=== PATIENT | female | born 1935 | race Caucasian/White ===

== ENCOUNTER 2017-11-24 12:12 | Day surgery (SDC) | payer OTHER ==
[~2017-11-24] VITALS: Ht 167.6 cm; Wt 70.2 kg
[~2017-11-24 12:12] MED LIST: ACET325 PO; CALMAGZIN PO; CHOL10002 PO; IBUP600 PO; LAVAP17G PO; MULVITMIND PO; OMEPRAZOLE PO; PSYL5.85P PO; VIT1CAPS12 PO; ZESTORETIC 20-121 EA PO
== END 2017-11-24 14:46 | disposition home or self-care (01) ==
LOC: ORSCSDS 12:12
PROVIDERS: Internal Medicine Gastroenterology
PROC: 0DB68ZX Excision of Stomach, Via Natural or Artificial Opening Endoscopic, Diagnostic (ICD-10-PCS; principal; 2017-11-24 13:30)
PROC: 0DB98ZX Excision of Duodenum, Via Natural or Artificial Opening Endoscopic, Diagnostic (ICD-10-PCS; principal; 2017-11-24 13:30)
PROC: 0D758ZZ Dilation of Esophagus, Via Natural or Artificial Opening Endoscopic (ICD-10-PCS; principal; 2017-11-24 13:30)
PROC: 0DB58ZX Excision of Esophagus, Via Natural or Artificial Opening Endoscopic, Diagnostic (ICD-10-PCS; principal; 2017-11-24 13:30)
DX: R13.10 Dysphagia, unspecified (principal); K22.2 Esophageal obstruction; K22.8 Other specified diseases of esophagus; K44.9 Diaphragmatic hernia without obstruction or gangrene; K31.7 Polyp of stomach and duodenum; R10.11 Right upper quadrant pain; I10 Essential (primary) hypertension; Z79.899 Other long term (current) drug therapy; Z87.891 Personal history of nicotine dependence
CPT/HCPCS: 88305; 88342; J7120

== ENCOUNTER → 2017-11-25 | Outpatient (CLI) | payer OTHER | LOC: LAB EV 11:00 → LAB SHORT 11:00 | DX: L03.119 Cellulitis of unspecified part of limb (principal) | CPT/HCPCS: 87070; 87077; 87147; 87186; 87205 ==

== ENCOUNTER → 2018-03-21 | Outpatient (CLI) | payer OTHER | LOC: LAB 11:45 → LAB SHORT 11:45 | DX: L08.9 Local infection of the skin and subcutaneous tissue, unspecified (principal) | CPT/HCPCS: 87070; 87077; 87186; 87205 ==

== ENCOUNTER → 2018-06-14 | Outpatient (CLI) | payer OTHER ==
[2018-06-14 17:40] LABS: BASOPHILS ABSOLUTE AUTO 0.08 K/mm3 (0.00-0.23); BASOPHILS PERCENT AUTO 1 % (0-2); EOSINOPHILS ABSOLUTE AUTO 0.08 K/mm3 (0.00-0.68); EOSINOPHILS PERCENT AUTO 1 % (0-6); Hematocrit 43.9 % (33.0-51.0); Hemoglobin 14.8 g/dL (11.5-16.0); IMMATURE GRAN ABSOLUTE AUTO 0.03 K/mm3 (0.00-0.10); IMMATURE GRAN PERCENT AUTO 0 % (0-1); LYMPHOCYTES ABSOLUTE AUTO 2.37 K/mm3 (0.84-5.20); LYMPHOCYTES PERCENT AUTO 30 % (21-46); MONOCYTES ABSOLUTE AUTO 0.56 K/mm3 (0.16-1.47); MONOCYTES PERCENT AUTO 7 % (4-13); Mean Corpuscular HGB Conc 33.7 g/dL (31.5-36.5); Mean Corpuscular Volume 89 fL (80-100); Mean Platelet Volume 9.6 fL (9.1-12.4); NEUTROPHILS ABSOLUTE AUTO 4.84 K/mm3 (1.96-9.15); NEUTROPHILS PERCENT AUTO 61 % (41-73); Platelet Count 362 K/mm3 (150-400); RDW Standard Deviation 45.2 fL (35.1-46.3); Red Blood Cell Count 4.94 M/mm3 (3.80-5.20); White Blood Cell Count 7.96 K/mm3 (4.00-11.30)
[2018-06-14 17:52] LABS: Alanine Aminotransfer (ALT/SGP 23 U/L (12-78); Albumin, Blood 4.1 g/dL (3.4-5.0); Albumin/Globulin Ratio 1.1 (0.8-1.8); Alk Phos 77 U/L (40-126); Anion Gap 10 mmol/L (6-16); Aspartate Aminotrans (AST/SGOT 16 U/L (12-37); Bilirubin, Total 0.3 mg/dL (0.1-1.0); Blood Urea Nitrogen 20 mg/dL (8-24); CO2, Blood 28 mmol/L (21-32); Calcium, Blood 9.7 mg/dL (8.5-10.1); Chloride, Blood 105 mmol/L (98-108); Creatinine, Blood 1.05 mg/dL (0.40-1.00); Globulin, Blood 3.6 g/dL (2.2-4.0); Glomerular Filtration Rate 50 (60-); Glucose, Blood 121 mg/dL (70-99); Potassium, Blood 3.2 mmol/L (3.5-5.5); Sodium, Blood 143 mmol/L (136-145); Total Protein, Blood 7.7 g/dL (6.4-8.2); Troponin I <0.017 ng/mL (0.000-0.040)
== END ==
LOC: LAB SHORT 17:34 → LAB EV 17:34
PROVIDERS: Physician Assistant
DX: R10.13 Epigastric pain (principal)
CPT/HCPCS: 80053; 84484; 85025

== ENCOUNTER → 2018-07-31 | Outpatient (CLI) | payer OTHER | END | disposition home or self-care (01) | LOC: LAB EV 08:34 → LAB SHORT 08:34 | DX: N39.0 Urinary tract infection, site not specified (principal) | CPT/HCPCS: 87077; 87086; 87186 ==

== ENCOUNTER → 2018-12-06 | Outpatient (CLI) | payer OTHER | END | disposition home or self-care (01) | LOC: LAB EV 09:24 → LAB SHORT 09:24 | DX: N39.0 Urinary tract infection, site not specified (principal) | CPT/HCPCS: 87077; 87086; 87186 ==

== ENCOUNTER → 2019-02-05 | Outpatient (CLI) | payer OTHER | END | disposition home or self-care (01) | LOC: LAB EV 07:55 → LAB SHORT 07:55 | DX: N39.0 Urinary tract infection, site not specified (principal) | CPT/HCPCS: 87077; 87086; 87186 ==

== ENCOUNTER → 2019-07-22 | Outpatient (CLI) | payer OTHER | END | disposition home or self-care (01) | LOC: LAB SHORT 08:35 → LAB 08:35 | DX: R35.0 Frequency of micturition (principal) | CPT/HCPCS: 87086 ==

== ENCOUNTER 2020-02-02 06:53 | Emergency (ER) | payer OTHER ==
[~2020-02-02] VITALS: Ht 167.6 cm; Wt 79.4 kg
[2020-02-02] MEDS ORDERED: KEFLEX500 MG PO (07:12)
== END 2020-02-02 07:22 | disposition home or self-care (01) ==
LOC: ER 06:53
DX: L03.114 Cellulitis of left upper limb (principal); L23.7 Allergic contact dermatitis due to plants, except food; I10 Essential (primary) hypertension; K21.9 Gastro-esophageal reflux disease without esophagitis; Z79.899 Other long term (current) drug therapy; Z87.891 Personal history of nicotine dependence
CPT/HCPCS: 99282

== ENCOUNTER → 2020-04-23 | Outpatient (CLI) | payer OTHER ==
[~2020-04-23] MED LIST changes: +CEPH500 PO; +KEFLEX500 MG PO; +ONDA4ODT MM
[2020-04-23 11:50] LABS: Adenovirus F 40/41 Not Detected (NOT DETECT); Astrovirus Not Detected (NOT DETECT); Campylobacter Sp Not Detected (NOT DETECT); Cryptosporidium Not Detected (NOT DETECT); Cyclospora Cayetanensis Not Detected (NOT DETECT); E. Coli O157 Not Detected (NOT DETECT); Entamoeba Histolytica Not Detected (NOT DETECT); Enteroaggregative E. coli-EAEC Not Detected (NOT DETECT); Enteropathogenic E. coli-EPEC Not Detected (NOT DETECT); Enterotoxigenic E. coli-ETEC Not Detected (NOT DETECT); Giardia Lamblia Not Detected (NOT DETECT); Norovirus GI/GII Not Detected (NOT DETECT); Plesiomonas Shigelloides Not Detected (NOT DETECT); Rotavirus A Not Detected (NOT DETECT); Salmonella Sp Not Detected (NOT DETECT); Sapovirus Not Detected (NOT DETECT); Shiga Toxin-prod E. coli-STEC Not Detected (NOT DETECT); Shigella/Enteroin E. coli-EIEC Not Detected (NOT DETECT); Vibrio Cholerae Not Detected (NOT DETECT); Vibrio Sp Not Detected (NOT DETECT); Yersinia Enterocolitica Not Detected (NOT DETECT)
== END | disposition home or self-care (01) ==
LOC: LAB 09:43 → LAB SHORT 09:43
PROVIDERS: Physician Assistant
DX: R19.7 Diarrhea, unspecified (principal)
CPT/HCPCS: 0097U

== ENCOUNTER 2020-06-05 10:11 | Day surgery (SDC) | payer OTHER ==
[~2020-06-05] VITALS: Ht 165.1 cm; Wt 66.2 kg
[~2020-06-05 10:11] MED LIST changes: +ALEN70 PO; +LISINOPRIL-HCT1 EACH PO; +MULTIVITAMINS1 EAC3 PO; +OMEP20ER PO; +PRAV20 PO; +VIT1CAPS12
== END 2020-06-05 12:55 | disposition home or self-care (01) ==
LOC: ORSCSDS 10:11
PROVIDERS: Internal Medicine Gastroenterology
PROC: 0DBL8ZX Excision of Transverse Colon, Via Natural or Artificial Opening Endoscopic, Diagnostic (ICD-10-PCS; principal; 2020-06-05 11:45)
PROC: 0DB68ZX Excision of Stomach, Via Natural or Artificial Opening Endoscopic, Diagnostic (ICD-10-PCS; principal; 2020-06-05 11:45)
PROC: 0DB98ZX Excision of Duodenum, Via Natural or Artificial Opening Endoscopic, Diagnostic (ICD-10-PCS; principal; 2020-06-05 11:45)
PROC: 0DBE8ZX Excision of Large Intestine, Via Natural or Artificial Opening Endoscopic, Diagnostic (ICD-10-PCS; principal; 2020-06-05 11:45)
PROC: 0DB58ZX Excision of Esophagus, Via Natural or Artificial Opening Endoscopic, Diagnostic (ICD-10-PCS; principal; 2020-06-05 11:45)
PROC: 0D758ZZ Dilation of Esophagus, Via Natural or Artificial Opening Endoscopic (ICD-10-PCS; principal; 2020-06-05 11:45)
DX: K62.5 Hemorrhage of anus and rectum (principal); R13.10 Dysphagia, unspecified; R19.7 Diarrhea, unspecified; K29.70 Gastritis, unspecified, without bleeding; D12.3 Benign neoplasm of transverse colon; K22.2 Esophageal obstruction; K44.9 Diaphragmatic hernia without obstruction or gangrene; K64.8 Other hemorrhoids; I10 Essential (primary) hypertension; K63.89 Other specified diseases of intestine; K21.9 Gastro-esophageal reflux disease without esophagitis; Z86.010 Personal history of colon polyps; Z87.891 Personal history of nicotine dependence; Z79.899 Other long term (current) drug therapy
CPT/HCPCS: 88305; 88342; J2405; J2704; J7040; J7120

== ENCOUNTER 2020-10-26 14:24 | Emergency (ER) | payer OTHER, SELFPAY ==
[~2020-10-26] VITALS: Ht 165.1 cm; Wt 69.0 kg
[~2020-10-26 14:24] MED LIST changes: -MULTIVITAMINS1 EAC3 PO; +MULVITA PO; -PRAV20 PO; +Pravachol40 MG PO; -VIT1CAPS12
[2020-10-26 16:40] LABS: BASOPHILS ABSOLUTE AUTO 0.11 K/mm3 (0.00-0.23); BASOPHILS PERCENT AUTO 0 % (0-2); EOSINOPHILS PERCENT AUTO 0 % (0-6); Hematocrit 39.9 % (33.0-51.0); Hemoglobin 13.5 g/dL (11.5-16.0); IMMATURE GRAN ABSOLUTE AUTO 0.24 K/mm3 (0.00-0.10); IMMATURE GRAN PERCENT AUTO 1 % (0-1); LYMPHOCYTES ABSOLUTE AUTO 1.39 K/mm3 (0.84-5.20); LYMPHOCYTES PERCENT AUTO 5 % (21-46); MONOCYTES PERCENT AUTO 7 % (4-13); Mean Corpuscular HGB 30.8 pg (26.0-34.0); Mean Corpuscular HGB Conc 33.8 g/dL (31.5-36.5); Mean Corpuscular Volume 91 fL (80-100); Mean Platelet Volume 9.4 fL (9.1-12.4); NEUTROPHILS ABSOLUTE AUTO 22.81 K/mm3 (1.96-9.15); NEUTROPHILS PERCENT AUTO 87 % (41-73); Platelet Count 316 K/mm3 (150-400); RDW Coefficient Variation 14.1 % (11.7-14.2); RDW Standard Deviation 47.1 fL (35.1-46.3); Red Blood Cell Count 4.38 M/mm3 (3.80-5.20); White Blood Cell Count 26.35 K/mm3 (4.00-11.30)
[2020-10-26 17:01] LABS: Alanine Aminotransfer (ALT/SGP 19 U/L (12-78); Albumin, Blood 3.4 g/dL (3.4-5.0); Albumin/Globulin Ratio 0.8 (0.8-1.8); Alk Phos 89 U/L (50-136); Anion Gap 8 mmol/L (6-16); Aspartate Aminotrans (AST/SGOT 13 U/L (12-37); Bilirubin, Total 0.8 mg/dL (0.1-1.0); Blood Urea Nitrogen 29 mg/dL (8-24); Bun/Creatinine Ratio 33.7 (12.0-20.0); CO2, Blood 26 mmol/L (21-32); Calcium, Blood 9.3 mg/dL (8.5-10.1); Chloride, Blood 108 mmol/L (98-108); Creatinine, Blood 0.86 mg/dL (0.40-1.00); Globulin, Blood 4.4 g/dL (2.2-4.0); Glomerular Filtration Rate >60 (60-); Glucose, Blood 137 mg/dL (70-99); Potassium, Blood 2.9 mmol/L (3.5-5.5); Sodium, Blood 142 mmol/L (136-145); Total Protein, Blood 7.8 g/dL (6.4-8.2)
== END 2020-10-26 17:45 | disposition left against medical advice (07) ==
LOC: ER 14:24
PROVIDERS: Physician Assistant
DX: R11.2 Nausea with vomiting, unspecified (principal); R10.11 Right upper quadrant pain; Z53.21 Procedure and treatment not carried out due to patient leaving prior to being seen by health care provider
CPT/HCPCS: 36415; 80053; 83690; 84484; 85025; 93005; 93010; 99284-25

== ENCOUNTER 2020-10-28 08:21 | Inpatient (IN) | payer OTHER, SELFPAY ==
[~2020-10-28] VITALS: Ht 162.6 cm; Wt 68.5 kg
[2020-10-28 08:26] LABS: BASOPHILS ABSOLUTE AUTO 0.05 K/mm3 (0.00-0.23); BASOPHILS PERCENT AUTO 0 % (0-2); EOSINOPHILS ABSOLUTE AUTO 0.01 K/mm3 (0.00-0.68); EOSINOPHILS PERCENT AUTO 0 % (0-6); Hematocrit 37.1 % (33.0-51.0); Hemoglobin 12.4 g/dL (11.5-16.0); IMMATURE GRAN PERCENT AUTO 1 % (0-1); LYMPHOCYTES ABSOLUTE AUTO 0.87 K/mm3 (0.84-5.20); LYMPHOCYTES PERCENT AUTO 4 % (21-46); MONOCYTES ABSOLUTE AUTO 1.46 K/mm3 (0.16-1.47); MONOCYTES PERCENT AUTO 7 % (4-13); Mean Corpuscular HGB 30.1 pg (26.0-34.0); Mean Corpuscular HGB Conc 33.4 g/dL (31.5-36.5); Mean Corpuscular Volume 90 fL (80-100); Mean Platelet Volume 9.9 fL (9.1-12.4); NEUTROPHILS PERCENT AUTO 87 % (41-73); Platelet Count 329 K/mm3 (150-400); RDW Coefficient Variation 14.3 % (11.7-14.2); RDW Standard Deviation 47.3 fL (35.1-46.3); Red Blood Cell Count 4.12 M/mm3 (3.80-5.20); White Blood Cell Count 20.69 K/mm3 (4.00-11.30)
[2020-10-28 08:44] LABS: Albumin, Blood 3.1 g/dL (3.4-5.0); Albumin/Globulin Ratio 0.6 (0.8-1.8); Bilirubin, Total 0.7 mg/dL (0.1-1.0); Bun/Creatinine Ratio 23.3 (12.0-20.0); Calcium, Blood 9.3 mg/dL (8.5-10.1); Creatinine, Blood 2.57 mg/dL (0.40-1.00); Globulin, Blood 4.9 g/dL (2.2-4.0); Potassium, Blood 2.8 mmol/L (3.5-5.5)
--- NOTE | 2020-10-28 15:41 | NUR ---
PT IS A 85YO/F, AOX4, WHO CAME HERE FOR ABD PAIN ON RUQ WITH NAUSEA AND VOMITING SINCE MONDAY. PT STATED THAT HER PAIN IS SHARP AND RADIATE THROUGHOUT HER ABD AND ONTO THE LEFT ABD WELL. PT ALSO C/O OF MID BACK PAIN. PT IS BEDREST AND BSC 1P ASSIST WITH FWW AND GAITBELT DUE TO GENERALIZED WEAKNESS. PT CAME IN WITH THE LACTIC ACID OF 3.3. PT WAS MEDICATED TYLENOLX1 PER ED RN. PT WAS ALSO GIVEN BOLUS OF LR AND FLAGYL. I WAS ABLE TO GIVE THE FIRST DOSE OF CEFIPIME DURING ADMISSION TO MEDICAL FLOOR. PT IS ON NS WO AT THIS TIME. PT WILL BE ON ON CONTINUOS FLUID @100- PT IS NPO AT THIS MOMENT. PT WAS ALSO GIVEN ZOFRAN UPON ARRIVAL. PT HAS HEAT PACK ON HER BACK AND STATED THAT IT SEEMS TO BE HELPING HER BACK. PT HAS A HX OF MASTECTOMY BILATERAL, SO BP ON LOWER LEG. PT ALSO HAS A HX OF HTN. RA AT BASELINE, HOWEVER PT DESAT PER LABORER CHEESEMAKING, ON 2L OF 02 AND SATS 96%. PT DENIES CP OR SOB AT THIS TIME. PT STATED SHE LIVE ALONE AT HOME IN [place] WITH HER CATS AND DOGS. PT ALSO STATED THAT SHE HAS A GRANDSON THAT LIVES CLOSEBY THAT WILL HELP HER WHEN SHE GETS OUT. PT HAS HIDA SCAN THIS AFTERNOON TO CHECK HER GALLBLADDER AND ALSO HAS ABD SCAN- SEE RESULTS. PT IS ORIENTED TO THE ROOM AND CALL LIGHT WITHIN REACH.
[2020-10-28 17:09] LABS: Source, Urine Clean Catch
[2020-10-28 17:17] LABS: Appearance, Urine Cloudy (Clear); Bilirubin, Urine Neg (Neg); Blood, Urine 2+ (Neg); Color, Urine Yellow (P-Yellow); Glucose Qualitative, Urine Neg (Neg); Ketones, Urine Neg (Neg); Leukocyte Esterase, Urine 3+ (Neg); Nitrite, Urine Neg (Neg); Protein, Urine 3+ (Neg); Specific Gravity, Urine 1.015 (1.003-1.022); Urobilinogen, Urine NORM (Normal)
[2020-10-28 17:31] LABS: White Blood Cells, Urine 50-100 /hpf (0-5)
[2020-10-28 17:32] LABS: Bacteria Many /hpf; Red Blood Cells, Urine 0-2 /hpf (0-2); Squamous Epithelial Cells Few /hpf (Few); Transitional Epithelial Cells Few /hpf (0-Rare)
--- NOTE | 2020-10-28 18:03 | NUR ---
DR GRAVES CAME BY TO SEE THE PT. PT AND G.DAUGHTER AT BEDSIDE STATED THAT STATED NO SURGERY NEEDED AT THIS TIME. PT NOW IS EATING DINNER. CALLED DOCTOR KAYODE TO VERIFY IF PT CAN EAT NOW AFTER THE SURGEON SAW THE PT.
--- NOTE | 2020-10-28 21:17 | NUR ---
PT IS ALERT AND ORIENTED. PT IS ABLE TO MOVE ALL EXTREMITIES. SHE IS HAVING PAIN RT NECK AND SHOULDER 10/10. PT MEDICATED WITH 2 MG OF MORPHINE WITH GOOD RELIEF. PT IS RESTING ON KPAD TO UPPER BACK AND NECK. IV IS PATENT, NS RUNNING. CALL LIGHT IS IN REACH. WILL CONTINUE TO MONITOR.
[2020-10-29 04:57] LABS: Hematocrit 32.7 % (33.0-51.0); Hemoglobin 10.3 g/dL (11.5-16.0); Mean Corpuscular HGB 29.4 pg (26.0-34.0); Mean Corpuscular HGB Conc 31.5 g/dL (31.5-36.5); Mean Corpuscular Volume 93 fL (80-100); Mean Platelet Volume 9.6 fL (9.1-12.4); Platelet Count 276 K/mm3 (150-400); RDW Coefficient Variation 14.4 % (11.7-14.2); RDW Standard Deviation 49.6 fL (35.1-46.3)
[2020-10-29 05:20] LABS: Bun/Creatinine Ratio 34.9 (12.0-20.0); Calcium, Blood 7.7 mg/dL (8.5-10.1); Creatinine, Blood 1.75 mg/dL (0.40-1.00); Magnesium, Blood 2.3 mg/dL (1.6-2.4); Potassium, Blood 3.8 mmol/L (3.5-5.5)
[2020-10-29 05:44] LABS: BAND PERCENT MAN 2 % (0-8); BASOPHILS ABSOLUTE MAN 0.14 K/mm3 (0.00-0.23); BASOPHILS PERCENT MAN 1 % (0-2); EOSINOPHILS PERCENT MAN 0 % (0-6); LYMPHOCYTES ABSOLUTE MAN 0.72 K/mm3 (0.84-5.20); LYMPHOCYTES PERCENT MAN 5 % (21-46); MONOCYTES ABSOLUTE MAN 0.72 K/mm3 (0.16-1.47); MONOCYTES PERCENT MAN 5 % (4-13); NEUTROPHILS ABSOLUTE MAN 12.81 K/mm3 (1.96-9.15); SEG NEUTROPHILS PERCENT MAN 87 % (41-73); TOTAL CELLS COUNTED 100
--- NOTE | 2020-10-29 05:54 | NUR ---
Rn summary: Patient remains alert and oriented. She was medicated with melatonin and did sleep on and off. Pt pain has improved, c/o lower back pain this am. Tylenol given, heating pad moved to lower back. Pt is able to use BSC with 1 assist. Urine is jose colored, cloudy and has a strong odor. No c/o nausia this am. Continues to rest with call light in reach.
--- NOTE | 2020-10-29 15:59 | NUR ---
SUMMARY PT IS A/O X4, PLEASANT/COOPERATIVE AFFECT. UP 1 ASSIST TO BR. SHE STATE CONTINUING WEAKNESS/FATIGUE. STATE CONTINUING L BACK/FLANK PAIN THAT RADIATES TO SHOULDERS. DX UTI, KIDNEY INFECTION. IV ANTIBX CONTINUE. DR GRAVES IN TO SEE HER THIS AFTERNOON, STATE NO SURG @ THIS TIME. VSS/AFEBRILE. PRN MORPHINE 2MG IV & TYLENOL PRN GIVEN TODAY FOR GOOD PAIN RELIEF/CONTROL.
--- NOTE | 2020-10-30 05:22 | NUR ---
SHIFT SUMMARY- PT. A&O, PLEASANT, AND COOPERATIVE WITH CARE. C/O R SHOULDER PAIN AND L FLANK PAIN DURING THE NIGHT. MEDICATED WITH MS AND TYLENOL PER EMAR, REPORTED GOOD EFFECT. ALSO MELATONIN GIVEN PER PT. REQUEST. APPEARED TO HAVE RESTED COMFORTRABLY THE REST OF THE NIGHT, NO APPARENT DISTRESS NOTED. PT. ABLE TO GET UP TO BSC WITH SBA, NOTED SOME WEAKNESS BUT STABLE. IV FLUIDS INFUSING AND ABX'S PER ORDER, TOLERATING WELL. VSS. CALL LIGHT WITHIN REACH AND SIDE RAILS UPX2. WILL CONT TO MONITOR.
[2020-10-30 09:06] LABS: Anion Gap 5 mmol/L (6-16); Blood Urea Nitrogen 39 mg/dL (8-24); Bun/Creatinine Ratio 43.1 (12.0-20.0); CO2, Blood 21 mmol/L (21-32); Calcium, Blood 7.6 mg/dL (8.5-10.1); Chloride, Blood 116 mmol/L (98-108); Glomerular Filtration Rate >60 (60-); Glucose, Blood 114 mg/dL (70-99); Potassium, Blood 3.5 mmol/L (3.5-5.5); Sodium, Blood 142 mmol/L (136-145)
--- NOTE | 2020-10-30 13:33 | NUR ---
Patient is sitting up in bed and watching a preacher on-line. This opens the door to a lengthy conversation and patient's Taoist geena and what it means to her. She admits that some of these medical issues are scary but she is thankful that she will not be having to go through another surgery. Patient talks about her family support and how grateful she is for her daughter and grandkids. I normalize patient's fears and reinforce helpful attitudes and practices, and provide therapeutic listeing, pastoral counselor/art therapist and prayer. Patient responds well and shows signs of being encouraged in her geena. I will continue to remain available to patient and family.
--- NOTE | 2020-10-30 17:10 | NUR ---
SUMMARY PT IS A/O X4, PLEASANT/COOPERATIVE. SHE STATE CONTINUING L FLANK PAIN THAT RADIATES TO R SHOULDER. HAVE GIVEN PRN TYLENOL & IV MORPHINE FOR RELIEF, CONTROL. DX UTI w KIDNEY CYST, IV ANTIBX CONTINUE. DR HEADLEY STATE TO CONTINUE IV NS @ 100 ML/HR. SHE IS UP w SBA, STATE CONTINUING WEAKNESS/FATIGUE. GDAUGHTER IN TO SEE HER THIS AFTERNOON, PROVIDED UP DATE. VSS/AFEBRILE.
[2020-10-31 04:40] LABS: BASOPHILS ABSOLUTE AUTO 0.12 K/mm3 (0.00-0.23); BASOPHILS PERCENT AUTO 1 % (0-2); EOSINOPHILS ABSOLUTE AUTO 0.16 K/mm3 (0.00-0.68); EOSINOPHILS PERCENT AUTO 1 % (0-6); Hematocrit 31.6 % (33.0-51.0); Hemoglobin 10.3 g/dL (11.5-16.0); IMMATURE GRAN ABSOLUTE AUTO 0.51 K/mm3 (0.00-0.10); IMMATURE GRAN PERCENT AUTO 4 % (0-1); LYMPHOCYTES ABSOLUTE AUTO 1.32 K/mm3 (0.84-5.20); LYMPHOCYTES PERCENT AUTO 10 % (21-46); MONOCYTES ABSOLUTE AUTO 1.68 K/mm3 (0.16-1.47); MONOCYTES PERCENT AUTO 13 % (4-13); Mean Corpuscular HGB 29.4 pg (26.0-34.0); Mean Corpuscular HGB Conc 32.6 g/dL (31.5-36.5); Mean Corpuscular Volume 90 fL (80-100); Mean Platelet Volume 9.1 fL (9.1-12.4); NEUTROPHILS ABSOLUTE AUTO 9.59 K/mm3 (1.96-9.15); NEUTROPHILS PERCENT AUTO 72 % (41-73); Platelet Count 366 K/mm3 (150-400); RDW Coefficient Variation 14.6 % (11.7-14.2); RDW Standard Deviation 48.3 fL (35.1-46.3); White Blood Cell Count 13.38 K/mm3 (4.00-11.30)
[2020-10-31 05:06] LABS: Anion Gap 8 mmol/L (6-16); Blood Urea Nitrogen 26 mg/dL (8-24); Bun/Creatinine Ratio 36.4 (12.0-20.0); CO2, Blood 21 mmol/L (21-32); Calcium, Blood 7.7 mg/dL (8.5-10.1); Chloride, Blood 114 mmol/L (98-108); Creatinine, Blood 0.72 mg/dL (0.40-1.00); Glomerular Filtration Rate >60 (60-); Glucose, Blood 121 mg/dL (70-99); Potassium, Blood 3.3 mmol/L (3.5-5.5); Sodium, Blood 143 mmol/L (136-145)
--- NOTE | 2020-10-31 05:40 | NUR ---
SHIFT SUMMARY PATIENT ALERT AND ORIENTED. HAD NO COMPLAINTS OF SHORTNESS OF BREATH. MEDICATED PER EMAR FOR PAIN. PATIENT REPORTED THAT SHE HAS NOT HAD A BOWEL MOVEMENT SINCE BEING ADMITTED INTO THE HOSPITAL AND IS REQUESTING STOOL SOFTENERS TO HELP HER GO. IV PATENT AND INFUSING. BED IN LOWEST POSITION WITH WHEELS LOCKED. CALL LIGHT WITHIN REACH. REPORT GIVEN TO ONCOMING RN.
--- NOTE | 2020-10-31 11:16 | NUR ---
in to assess and encourage, pt and him agreed that it would be best for her to stay one more night so abx could continue, prescribed medication to help sleep but both expressed desire to limit to just dealing with issue of not sleeping in hospital, denied flank pain, now head and neck hurt, no emisis but states she coughed alot last night
--- NOTE | 2020-10-31 16:20 | NUR ---
family called for update, expressed concern r/discharge, acknowleged they were not uptodate on information and agreed to have a family member come in with the latest information, family member arrived and after rushing into pt's rm rushed back out to talk to the nurse, nurse and family member immediately reentered the rm where pt was crying, when asked she said that she was afraid she was being sent home and that the county health officer was a unicorn, calmed the pt down and reassured her then also talked to the family member until she was also calmed down, the dr had said he would reasses pt tomorrow and decide if she was ready to go home, family would have the chance to have input as to their view of the situation, the nurse had been talking to the county health officer about unicorns and the pt must have overheard the conversation, pt and family agreed that would explain things, the family member and nurse both appologized to each other for any misunderstanding that might have occured, and promised to keep working for the best possible out come for the pt who went down for a chest xray, and returned tired but feeling more relaxed, ready to get a nap, will continue to monior and treat
--- NOTE | 2020-10-31 19:24 | NUR ---
a+o but anxious and forgetful, family is currently happy with mmc, call light in reach, saline locked, rm air, using bsc, happy to see noc nurse and participated in bsr
[2020-11-01 04:28] LABS: BASOPHILS ABSOLUTE AUTO 0.12 K/mm3 (0.00-0.23); BASOPHILS PERCENT AUTO 1 % (0-2); EOSINOPHILS ABSOLUTE AUTO 0.09 K/mm3 (0.00-0.68); EOSINOPHILS PERCENT AUTO 1 % (0-6); Hematocrit 31.9 % (33.0-51.0); Hemoglobin 10.5 g/dL (11.5-16.0); IMMATURE GRAN ABSOLUTE AUTO 1.62 K/mm3 (0.00-0.10); IMMATURE GRAN PERCENT AUTO 11 % (0-1); LYMPHOCYTES ABSOLUTE AUTO 1.28 K/mm3 (0.84-5.20); LYMPHOCYTES PERCENT AUTO 9 % (21-46); MONOCYTES ABSOLUTE AUTO 1.93 K/mm3 (0.16-1.47); MONOCYTES PERCENT AUTO 13 % (4-13); Mean Corpuscular HGB 29.7 pg (26.0-34.0); Mean Corpuscular HGB Conc 32.9 g/dL (31.5-36.5); Mean Corpuscular Volume 90 fL (80-100); NEUTROPHILS ABSOLUTE AUTO 9.34 K/mm3 (1.96-9.15); NEUTROPHILS PERCENT AUTO 65 % (41-73); Platelet Count 397 K/mm3 (150-400); RDW Coefficient Variation 14.9 % (11.7-14.2); RDW Standard Deviation 49.4 fL (35.1-46.3); Red Blood Cell Count 3.54 M/mm3 (3.80-5.20); White Blood Cell Count 14.38 K/mm3 (4.00-11.30)
[2020-11-01 04:45] LABS: Anion Gap 6 mmol/L (6-16); BAND PERCENT MAN 3 % (0-8); BASOPHILS ABSOLUTE MAN 0.14 K/mm3 (0.00-0.23); BASOPHILS PERCENT MAN 1 % (0-2); Blood Urea Nitrogen 18 mg/dL (8-24); Bun/Creatinine Ratio 27.2 (12.0-20.0); CO2, Blood 23 mmol/L (21-32); Calcium, Blood 7.6 mg/dL (8.5-10.1); Chloride, Blood 115 mmol/L (98-108); Creatinine, Blood 0.66 mg/dL (0.40-1.00); EOSINOPHILS PERCENT MAN 0 % (0-6); Glomerular Filtration Rate >60 (60-); Glucose, Blood 129 mg/dL (70-99); LYMPHOCYTES ABSOLUTE MAN 1.58 K/mm3 (0.84-5.20); LYMPHOCYTES PERCENT MAN 11 % (21-46); MONOCYTES ABSOLUTE MAN 0.57 K/mm3 (0.16-1.47); MONOCYTES PERCENT MAN 4 % (4-13); NEUTROPHILS ABSOLUTE MAN 11.93 K/mm3 (1.96-9.15); PROMYELOCYTE ABSOLUTE MAN 0.14 K/mm3 (0.00-0.00); PROMYELOCYTE PERCENT MAN 1 % (0-0); Potassium, Blood 3.9 mmol/L (3.5-5.5); SEG NEUTROPHILS PERCENT MAN 80 % (41-73); Sodium, Blood 144 mmol/L (136-145); TOTAL CELLS COUNTED 100
--- NOTE | 2020-11-01 05:49 | NUR ---
SHIFT SUMMARY PATIENT ALERT AND ORIENTED WITH OCCASIONAL CONFUSION. PATIENT MEDICATED PER EMAR FOR PAIN AND NAUSEA. PATIENT DID NOT GET MUCH SLEEP OVERNIGHT. IV PATENT AND INFUSING. BED IN LOWEST POSITION WITH WHEELS LOCKED. CALL LIGHT WITHIN REACH. REPORT GIVEN TO ONCOMING RN.
--- NOTE | 2020-11-01 09:03 | NUR ---
PT OFF UNIT VIA W/C FOR CT ABD/PEL.
--- NOTE | 2020-11-01 11:41 | NUR ---
ATTEMPTED TWICE TO CALL PROVIDER CONSULT TO DR. ROSADO, LINE IS BUSY. WILL KEEP TRYING.
--- NOTE | 2020-11-01 13:08 | NUR ---
ATTEMPTED TO CALL IN [facility] FOR DR. ROSADO AGAIN, LINE BUSY. WILL ATTEMPT TO CALL AGAIN.
--- NOTE | 2020-11-01 15:27 | NUR ---
ATTEMPTED TO CALL CONSULT TO MARLENE BRUCE.
--- NOTE | 2020-11-01 17:35 | NUR ---
SHIFT SUMMARY: PATIENT DYSPNEIC X 2 AFTER USING BSC; O2 SAT 91-93% ON RA, PLACED ON 2 L/MIN NC WITH RESULTING O2 SAT 95%. EDUCATED ABOUT ATELECTASIS AND USE OF INCENTIVE SPIROMETER, IS COMPLIANT. LBM ON 10/28, MIRALAX & PRUNE JUICE GIVEN, NO RESULT YET. C/O PAIN IN R SHOULDER, NECK, AND HEAD; MEDICATED WITH MORPHINE X 1 WITH ADEQUATE RELIEF (DECLINED TYLENOL). GETTING UP TO BSC INDEPENDENTLY. HAD DISCUSSION WITH PT AND HER GRANDDAUGHTER ABOUT PLAN FOR CT GUIDED PERCUTANEOUS DRAIN TO DRAIN L RENAL CYST. POOR APPETITE.
--- NOTE | 2020-11-02 05:57 | NUR ---
SHIFT SUMMARY PATIENT ALERT AND ORIENTED. MEDICATED NEEDED PER EMAR FOR PAIN. NO COMPLAINTS OF NAUSEA OVERNIGHT. PATIENT DID APPEAR TO BE WORKING HARDER TO BREATHE OVERNIGHT, BUT REPORTS NO FEELINGS OF SHORTNESS OF BREATH. PATIENT REINFORCED WITH TEACHING ON THE USE OF INCENTIVE SPIROMETER. PATIENT REPORTS BEING ABLE TO GET BETTER, MORE RESTFUL SLEEP OVERNIGHT. CONSULT FOR DR ROSADO CALLED IN TO ANSWERING SERVICE. IV PATENT AND INFUSING. BED IN LOWEST POSITION WITH WHEELS LOCKED. CALL LIGHT WITHIN REACH. REPORT GIVEN TO ONCOMING RN.
--- NOTE | 2020-11-02 16:49 | NUR ---
SHIFT SUMMARY PT IS AOX4. PT MEDICATED FOR PAIN X1 THIS SHIFT. PT DENIES N/V, SOB, BUT APPEARS SOB WITH EXERTION. PT IS CURRENTLY ON ROOM AIR. PT IS SBA TO BEDSIDE COMMODE. PT WORKED WITH BOTH PT AND OT TODAY. PLAN IS FOR PERCUTANEOUS DRAIN PLACEMENT TOMORROW. PT DID NOT HAVE VISITORS TODAY. THIS RN SPOKE WITH PT'S DAUGHTER VIA THE PHONE. PT HAS A GOOD APPETITE TODAY, PT IS IN BED, CALL LIGHT IN REACH, BED IN LOW POSITION.
--- NOTE | 2020-11-02 17:44 | NUR ---
ADMIT: 10/28/20 DISCHARGE: DX: abdom pain CC: cpeabody MEG CALL: call [facility] at home for meg RESIDENCE: home, with Son CAREGIVER: Hippa : Colleen Duke, Child, [phone] Ariella Vo, Child, [phone] Juan Carlos Vo, DX: htn, scoliosis, ibs, lumbar arthritis, macular degeneration DME: mobile with in her home, no aids needed. CCM: no record HOME HEALTH: no record SUMMARY: Admit 10/28/20 11/02/[address] Acosta ETA discharge to home on Monday. Plan to meet with Kamille on Monday morning to discuss transition of care for [place]. cp 10/30/[address] Duggan, patient most likely to stay the weekend. No eta for discharge. cp 10/29/20 Met with Kamille, has been mobile with in her home, lives with son. Updated white board in room for discharge planning and Drs name. cp PROBLEMS: 1: Sepsis A/P: Presented with tachypnea, tachycardia elevated leukocytosis, subjective fever at home Source likely perinephric inflammation/complex cyst
--- NOTE | 2020-11-03 04:13 | NUR ---
SHIFT SUMMARY NO ACUTE CHANGES THIS SHIFT, MEDICATED PER MAR FOR SLEEP, NO OTHER C/O ANY KIND, SLEPT T/O THE NIGHT & AT THIS TIME, CALL LIGHT IN REACH, WILL CONT TO MONITOR UNTIL REPORT GIVEN TO DAY RN.
[2020-11-03 16:24] LABS: Influenza A, PCR NEGATIVE (NEGATIVE); Influenza B, PCR NEGATIVE (NEGATIVE); Resp Syncytial Virus, PCR NEGATIVE (NEGATIVE); SARS-Cov-2 (COVID-19) PCR, MMC NEGATIVE (NEGATIVE)
--- NOTE | 2020-11-03 17:24 | NUR ---
11/03/20 PT rec home, no hh, parttime care. Recommending using a walker for safety but patient refuses. Per Dr Acosta, ETA discharge Monday. cp
--- NOTE | 2020-11-03 18:12 | NUR ---
SHIFT SUMMARY PT A&Ox4, CALM AND COOPERATIVE THROUGHTOUT SHIFT. HAND OFF REPORT STATED PT TO TO HAVE PROCEDURE DONE POSSIBLY TODAY, PROCEDURE WAS PUSHED OUT UNTIL TOMORROW. PT AWARE AND WAS UNDERSTANDING. ONLY CONCERN FOR PT WAS IF SHE WILL STILL BE ABLE TO GO HOME TOMORROW IF PROCEDURE WAS COMPLETED EARLY ENOUGH. TOLD PT TO DISCUSS THIS WITH ASHLEE AND THE PROVIDER ASSIGNED TO HER TOMORROW. PT WAS ON RA AT THE BEGINNING OF SHIFT BUT REPORTED SOB AND HER O2 SATURATIONS WERE BELOW 90%. 2 L/MIN O2 PLACED ON PT VIA NC, PT O2 SATURATION INCREASED TO APPROX 94%. PROVIDER CAME IN AND ORDERED 40 MG LASIX ONE TIME DOSE AND STOPPED IV FLUIDS. PROVIDER ALSO PUT PT DOWN TO 1 L/MIN AND SHE REMAINED ABOUT 90%. PT STATED SHE WAS NOT SOB APPROX 2 HOURS AFTER ADMINISTRATION OF LASIX. ATTEMPTED TO WING PT OFF O2. PT WAS SATING 87% ON RA. 1 L/MIN O2 PLACED BACK ON PT WELL A CONT PULSE OX, PATING SATING ABOUT 92%. PT IS TO BE NPO AFTER MIDNIGHT FOR PROCEDURE TOMORROW, UNCOMING RN WILL BE NOTIFIED. ORDER WAS PLACED. PT IS CURRENTLY LYING IN BED, CALL LIGHT WITHIN REACH. INDEPENDENT TO BSC.
[2020-11-04 05:17] LABS: Hematocrit 30.7 % (33.0-51.0); Hemoglobin 10.3 g/dL (11.5-16.0); Mean Corpuscular HGB 29.7 pg (26.0-34.0); Mean Corpuscular HGB Conc 33.6 g/dL (31.5-36.5); Mean Corpuscular Volume 89 fL (80-100); Mean Platelet Volume 8.7 fL (9.1-12.4); NRBC ABSOLUTE 0.02 K/mm3 (0.00-0.02); NRBC Auto 0.1 /100 WBC (0.0-0.2); Platelet Count 513 K/mm3 (150-400); RDW Coefficient Variation 15.2 % (11.7-14.2); RDW Standard Deviation 48.5 fL (35.1-46.3); Red Blood Cell Count 3.47 M/mm3 (3.80-5.20)
[2020-11-04 05:37] LABS: Alanine Aminotransfer (ALT/SGP 54 U/L (12-78); Albumin, Blood 1.9 g/dL (3.4-5.0); Albumin/Globulin Ratio 0.5 (0.8-1.8); Alk Phos 375 U/L (50-136); Anion Gap 7 mmol/L (6-16); Aspartate Aminotrans (AST/SGOT 25 U/L (12-37); Bilirubin, Total 0.5 mg/dL (0.1-1.0); Blood Urea Nitrogen 11 mg/dL (8-24); Bun/Creatinine Ratio 17.5 (12.0-20.0); CO2, Blood 27 mmol/L (21-32); Calcium, Blood 7.4 mg/dL (8.5-10.1); Chloride, Blood 109 mmol/L (98-108); Creatinine, Blood 0.63 mg/dL (0.40-1.00); Glomerular Filtration Rate >60 (60-); Glucose, Blood 109 mg/dL (70-99); Potassium, Blood 2.8 mmol/L (3.5-5.5); Sodium, Blood 143 mmol/L (136-145); Total Protein, Blood 5.9 g/dL (6.4-8.2)
[2020-11-04 05:59] LABS: BAND PERCENT MAN 1 % (0-8); BASOPHILS PERCENT MAN 0 % (0-2); EOSINOPHILS PERCENT MAN 0 % (0-6); LYMPHOCYTES ABSOLUTE MAN 0.36 K/mm3 (0.84-5.20); LYMPHOCYTES PERCENT MAN 2 % (21-46); METAMYELOCYTE ABSOLUTE MAN 0.36 K/mm3 (0.00-0.00); METAMYELOCYTE PERCENT MAN 2 % (0-0); MONOCYTES ABSOLUTE MAN 0.18 K/mm3 (0.16-1.47); MONOCYTES PERCENT MAN 1 % (4-13); NEUTROPHILS ABSOLUTE MAN 17.29 K/mm3 (1.96-9.15); SEG NEUTROPHILS PERCENT MAN 94 % (41-73); TOTAL CELLS COUNTED 100
--- NOTE | 2020-11-04 06:13 | NUR ---
ADILSON WAS AWAKE ALL NIGHT. NO COMPLAINTS OF DISCOMFORT AND QUITE CONVERSIVE WITH STAFF. SHE WAS ASKING VERY FREQUENTLY ABOUT THE SCHEDULE FOR HER SURGERY THIS MORNING. HER GRANDSON IS PLANNING ON PICKING HER UP AFTER HER PROCEDURE. ANXIOUS TO GET IT DONE
--- NOTE | 2020-11-04 16:46 | NUR ---
11/04/[address] Acosta, Dr Lamas is want to drain abcess before she leaves the hospital. No ETA for discharge today. cp
--- NOTE | 2020-11-04 19:05 | NUR ---
SHIFT SUMMARY NO ACUTE CHANGES T/O SHIFT, A&Ox4, CALM AND COOPERATIVE WITH CARE. K+ LEVELS NOTED TO BE LOW TODAY, PROVIDER NOTIFIED, IV AND PO POTASSIUM ORDERED [facility] FOR TOMORROW MORNING TO REASSESS LEVELS. PT WENT FOR CYST DRAINAGE THIS EVENING AND TOLERATED POST PROCEDURE WELL. DRESSING C/D/I. PT WAS OFF O2 FOR A MAJORITY OF THE DAY AND O2 SATURATIONS REMAINED ABOVE 90% WITH NO REPORTS OF SOB. AFTER PROCEDURE AND ONCE PT WAS BACK IN ROOM SHE WAS SATING 86%, 2 L/MIN O2 APPLIED AND O2 SATS STABLIZED. PT IS STILL CURRENTLY ON O2, WILL NOTIFTY ONCOMING NURSE TO WEAN PT OFF O2. PT IS NO LONGER NPO. NOW ON REGULAR DIET WITH FLUID RESTRICTION OF 1800. POSSIBLE DISCHARGE TOMORROW. PT IS CURRENTLY RESTING IN BED WITH CALL LIGHT WITHIN REACH.
--- NOTE | 2020-11-05 05:04 | NUR ---
night manager summary pt a/o x4, slept well tonight after xanax given. gets up with sba to the bsc. vss. medicated for pain once overnight. continues to be on 2L O2 satting in the mid 90's. no sob noted. left flank dressing appears c.d.i. vss, no acute changes. bed alarm in place, call light within reach.
[2020-11-05 05:18] LABS: BASOPHILS ABSOLUTE AUTO 0.11 K/mm3 (0.00-0.23); BASOPHILS PERCENT AUTO 1 % (0-2); EOSINOPHILS ABSOLUTE AUTO 0.09 K/mm3 (0.00-0.68); EOSINOPHILS PERCENT AUTO 1 % (0-6); Hematocrit 32.5 % (33.0-51.0); Hemoglobin 10.8 g/dL (11.5-16.0); IMMATURE GRAN ABSOLUTE AUTO 1.02 K/mm3 (0.00-0.10); IMMATURE GRAN PERCENT AUTO 5 % (0-1); LYMPHOCYTES ABSOLUTE AUTO 1.92 K/mm3 (0.84-5.20); LYMPHOCYTES PERCENT AUTO 10 % (21-46); MONOCYTES ABSOLUTE AUTO 1.03 K/mm3 (0.16-1.47); MONOCYTES PERCENT AUTO 5 % (4-13); Mean Corpuscular HGB 29.9 pg (26.0-34.0); Mean Corpuscular HGB Conc 33.2 g/dL (31.5-36.5); Mean Corpuscular Volume 90 fL (80-100); NEUTROPHILS ABSOLUTE AUTO 15.51 K/mm3 (1.96-9.15); NEUTROPHILS PERCENT AUTO 79 % (41-73); Platelet Count 525 K/mm3 (150-400); RDW Coefficient Variation 15.6 % (11.7-14.2); RDW Standard Deviation 51.4 fL (35.1-46.3); Red Blood Cell Count 3.61 M/mm3 (3.80-5.20); White Blood Cell Count 19.68 K/mm3 (4.00-11.30)
[2020-11-05 05:45] LABS: Alanine Aminotransfer (ALT/SGP 46 U/L (12-78); Albumin, Blood 1.8 g/dL (3.4-5.0); Albumin/Globulin Ratio 0.4 (0.8-1.8); Alk Phos 321 U/L (50-136); Anion Gap 8 mmol/L (6-16); Aspartate Aminotrans (AST/SGOT 40 U/L (12-37); Bilirubin, Total 0.5 mg/dL (0.1-1.0); Blood Urea Nitrogen 9 mg/dL (8-24); Bun/Creatinine Ratio 18.8 (12.0-20.0); CO2, Blood 24 mmol/L (21-32); Calcium, Blood 6.9 mg/dL (8.5-10.1); Chloride, Blood 109 mmol/L (98-108); Creatinine, Blood 0.48 mg/dL (0.40-1.00); Globulin, Blood 4.1 g/dL (2.2-4.0); Glomerular Filtration Rate >60 (60-); Glucose, Blood 76 mg/dL (70-99); Potassium, Blood 4.3 mmol/L (3.5-5.5); Sodium, Blood 141 mmol/L (136-145); Total Protein, Blood 5.9 g/dL (6.4-8.2)
--- NOTE | 2020-11-05 09:32 | NUR ---
Echocardiogram completed.
--- NOTE | 2020-11-05 17:53 | NUR ---
11/05/20 Procedure complete, waiting for culture results for discharge. May need home oxygen at discharge. Edema possibly due to CHF. Home o2 evaluation needed prior to discharge. Home health OT is being recommended with daytime caregiver care. cp Dr Karla ROMO discharge is Monday. Will follow with patient monday for possible oxygen order and discharge planning. nabil
--- NOTE | 2020-11-05 19:18 | NUR ---
SHIFT SUMMARY ADILSON DENIED PAIN THIS SHIFT. INDEP UP TO BSC. WEANED TO ROOM AIR THIS SHIFT. ECHO DONE THIS MORNING, AWAITING RESULTS. L FLANK DRESSING C/D/I. TOOK MEDS PRESCRIBED, CALL LIGHT IN REACH, REPORT GIVEN TO NIGHT NURSE
--- NOTE | 2020-11-06 04:58 | NUR ---
POCKET SETTER SUMMARY PT A/O X4, ALBERT BURTON. DENIED PAIN, NAUSEA, SOB. ROOM AIR SATTING IN LOW TO MID 90'S. VSS. NO ACUTE CHANGES. CALL LIGHT WITHIN REACH.
[2020-11-06 05:02] LABS: BASOPHILS ABSOLUTE AUTO 0.13 K/mm3 (0.00-0.23); BASOPHILS PERCENT AUTO 1 % (0-2); EOSINOPHILS ABSOLUTE AUTO 0.08 K/mm3 (0.00-0.68); EOSINOPHILS PERCENT AUTO 0 % (0-6); Hematocrit 32.5 % (33.0-51.0); Hemoglobin 10.9 g/dL (11.5-16.0); IMMATURE GRAN ABSOLUTE AUTO 0.79 K/mm3 (0.00-0.10); IMMATURE GRAN PERCENT AUTO 4 % (0-1); LYMPHOCYTES ABSOLUTE AUTO 2.08 K/mm3 (0.84-5.20); LYMPHOCYTES PERCENT AUTO 11 % (21-46); MONOCYTES ABSOLUTE AUTO 1.19 K/mm3 (0.16-1.47); MONOCYTES PERCENT AUTO 6 % (4-13); Mean Corpuscular HGB 29.6 pg (26.0-34.0); Mean Corpuscular HGB Conc 33.5 g/dL (31.5-36.5); Mean Corpuscular Volume 88 fL (80-100); Mean Platelet Volume 8.6 fL (9.1-12.4); NEUTROPHILS ABSOLUTE AUTO 15.02 K/mm3 (1.96-9.15); NEUTROPHILS PERCENT AUTO 78 % (41-73); Platelet Count 616 K/mm3 (150-400); RDW Coefficient Variation 15.2 % (11.7-14.2); RDW Standard Deviation 49.3 fL (35.1-46.3); Red Blood Cell Count 3.68 M/mm3 (3.80-5.20); White Blood Cell Count 19.29 K/mm3 (4.00-11.30)
[2020-11-06 06:00] LABS: Alanine Aminotransfer (ALT/SGP 36 U/L (12-78); Albumin, Blood 1.9 g/dL (3.4-5.0); Albumin/Globulin Ratio 0.5 (0.8-1.8); Alk Phos 279 U/L (50-136); Anion Gap 6 mmol/L (6-16); Aspartate Aminotrans (AST/SGOT 20 U/L (12-37); Bilirubin, Total 0.5 mg/dL (0.1-1.0); Blood Urea Nitrogen 12 mg/dL (8-24); Bun/Creatinine Ratio 22.7 (12.0-20.0); CO2, Blood 25 mmol/L (21-32); Calcium, Blood 7.4 mg/dL (8.5-10.1); Chloride, Blood 108 mmol/L (98-108); Creatinine, Blood 0.53 mg/dL (0.40-1.00); Globulin, Blood 3.9 g/dL (2.2-4.0); Glomerular Filtration Rate >60 (60-); Glucose, Blood 106 mg/dL (70-99); Potassium, Blood 3.5 mmol/L (3.5-5.5); Sodium, Blood 139 mmol/L (136-145); Total Protein, Blood 5.8 g/dL (6.4-8.2)
[2020-11-06] MEDS ORDERED: MELATONIN5 M1 PO (13:36)
[2020-11-06] MEDS ORDERED: MIRALAX17 GM PO (13:36)
[2020-11-06] MEDS ORDERED: POTCHL20ER PO (13:36)
[2020-11-06] MEDS ORDERED: Norco 5-325 Ta1 EACH PO (13:37)
--- NOTE | 2020-11-06 15:25 | NUR ---
DISCHARGE SUMMARY ADILSON LEFT WITH HER SON BY CAR. PIV WAS REMOVED, PAPERWORK GONE OVER, PHYSICAL SCRIPT OF [place] GIVEN TO HER AND PLACED IN HER DISCHARGE FOLDER WHICH WAS PLACED IN HER BAG. OTHER PRESCRIPTIONS FAXED TO [facility]OME[facility]. WENT OVER ALL MEDS AND DISCHARGE PAPERWORK WITH PT. [facility] WILL CALL HIM TO SCHEDULE.
--- NOTE | 2020-11-06 17:59 | NUR ---
ADMIT: 10/28/20 DISCHARGE: 11/06/20 DX: abdom pain CC: cpeabanil MEG CALL: call Kamille at home for meg- 1 week follow up with meg RESIDENCE: home, with Son CAREGIVER: Hippa : Colleen Duke, Child, [phone] Ariella Vo, Child, [phone] Juan Carlos Vo, DX: htn, scoliosis, ibs, lumbar arthritis, macular degeneration DME: mobile with in her home, no aids needed. says she has a cane CCM: no record HOME HEALTH: Ordered home health with [facility] 11/06/20 SUMMARY: Admit 10/28/20 11/06/20 Discharge home, son will be staying with her. Ordered home health services with [facility], patients choice. Son can stop by pharmacy, Has everthing she needs at home. Expecting our meg call on Monday or Monday for 1 week follow up appointment cp
== END 2020-11-06 14:54 | disposition home health service (06) | DRG 871 ==
LOC: LAB SHORT 08:21 → US 08:21 → ER 08:21 → EDSTATUS 08:56 → MEDS 11:26
PROVIDERS: Internal Medicine; Physician Assistant Medical; Radiology Diagnostic Radiology; ADMIT Internal Medicine
PROC: 0T943ZZ Drainage of Left Kidney Pelvis, Percutaneous Approach (ICD-10-PCS; principal; 2020-11-03)
DX: A41.9 Sepsis, unspecified organism (principal); I50.31 Acute diastolic (congestive) heart failure; E87.2 Acidosis; N39.0 Urinary tract infection, site not specified; Z20.822 Contact with and (suspected) exposure to COVID-19; E78.5 Hyperlipidemia, unspecified; I10 Essential (primary) hypertension; K21.9 Gastro-esophageal reflux disease without esophagitis; E87.6 Hypokalemia; N28.1 Cyst of kidney, acquired; M81.0 Age-related osteoporosis without current pathological fracture; R09.02 Hypoxemia; I11.0 Hypertensive heart disease with heart failure; Z85.3 Personal history of malignant neoplasm of breast
CPT/HCPCS: 0241U; 36415; 49405; 74019; 74176; 74177; 76705; 76937; 78226; 80048; 80053; 81001; 83605; 83690; 83735; 83880; 84145; 84484; 85025; 87040; 87070; 87075; 87077; 87086; 87186; 87205; 93306; 94762; 96361; 96374; 96375; 97110; 97116; 97162; 97165; 97530; 97535; 99152; 99153; 99285-25; A9270; A9537; C1729; C1769; C1894; J0692; J1644; J1650; J1885; J1940; J2250; J2270; J2405; J3010; J3370; J3480; J7030; J7040; J7050; J7120; Q9967

== ENCOUNTER → 2022-01-18 | Outpatient (CLI) | payer OTHER ==
[~2022-01-18] MED LIST changes: +MELATONIN5 M1 PO; +MIRALAX17 GM PO; +Norco 5-325 Ta1 EACH PO; +POTCHL20ER PO
== END | disposition home or self-care (01) ==
LOC: LAB SHORT 07:09 → LAB 07:09 → PLD 07:09
DX: C73 Malignant neoplasm of thyroid gland (principal); E04.1 Nontoxic single thyroid nodule
CPT/HCPCS: 88173

== ENCOUNTER 2022-02-16 16:26 | Inpatient (IN) | payer OTHER ==
[~2022-02-16] VITALS: Ht 165.1 cm; Wt 65.5 kg
[~2022-02-16 16:26] MED LIST changes: +PRAV20 PO; -Pravachol40 MG PO
--- NOTE | 2022-02-24 07:19 | NUR ---
History, Chart, Medications and Allergies reviewed before start of procedure. Lungs clear T/O to Auscultation. Patient confirms NPO status and agrees with scheduled surgery. Pre-Op teaching done. Pt verbalizes understanding. Patient States Post-Procedure ride home has been arranged. Pt plans to stay the evening. Patient reports completing Chlorhexadine shower X2 prior to admission to hospital. Surgical site prepped with 2% Chlorhexidine cloth wipe. Pt dentures and glasses removed and placed with belongings.
--- NOTE | 2022-02-24 07:27 | NUR ---
NO COVID TEST DONE DUE TO POSITIVE 01/15/22. PT DENIES ANY SYMPTOMS OF FEELING SICK. PATIENT REPORTS NEVER HAVING FEVER.
--- NOTE | 2022-02-24 07:28 | NUR ---
AGREE WITH STUDENT NURSE ABOVE NOTES.
--- NOTE | 2022-02-24 14:13 | NUR ---
1220 ARRIVED TO ROOM. ALERT AND ORIENTED. NECK INCISION INTACT. RADHA WITH SCANT BLOODY DRINAGE. PT DOZING , REPORTS PAIN IS ADEQUATELY CONTROLLE. PT DENIES SOB OR SWALLOWIING DIFFICULTY
--- NOTE | 2022-02-24 17:31 | NUR ---
PT AMBULATED TO BR TO VOID CLEAR YELLOW URINE. UP TO CHAIR FOR DINNER. DENIES DIFFICULTY SWALLOWING OR SOB. OXYGEN REMOVED AND PT BIOX GREATER THAN 90% ON SPOT CHECKS. PT REPORTS PAIN CONTROLLED AT 10. INCISION BRUISED, NO DRAINAGE. RADHA NOT MAINTAINING SUCTION AT TIMES. PT STATES SHE FEELS MUCH BETTER THAN SHE THOUGHT SHE WOULD
--- NOTE | 2022-02-25 05:46 | NUR ---
SUMMARY PT ABLE TO TAKE PO. NO RESP DISTRESS.VOIDING WITHOUT DIFF.PAIN CONTROLLED WITH PO MEDS.
[2022-02-25] MEDS ORDERED: OYSTER SHELL 51 EAC2 PO (09:19)
[2022-02-25] MEDS ORDERED: BACITRACIN ZIN1 EAC1 TOP (09:29)
--- NOTE | 2022-02-25 10:58 | NUR ---
1033 DISCHARGED TO HOME WITH SON AND DAUGHTER. MPT AND FAMILY IN AGREEMENT WITH DISCHARGE. PT AND FAMILY VERBALIZE UNDERSTANDING OF DISCHARGE INSTRUCTIONS AND ARE COMFORTABLE PROVIDING WOUND CARE AND DRAIN MANAGEMENT. PT BHAVYA PO FOOD AND FLUIDS, VOIDING CLEAR YELLOW URINE. WOUND CLEAN DRY AND INTACT WITH RADHA IN PLACE. RADHA LOSES SUCTION AT TIME. PT REPORTS PAIN IS WELL CONTROLLED
== END 2022-02-25 10:35 | disposition home or self-care (01) | DRG 627 ==
LOC: PRE IP 02-17 07:30 → MEDS 02-24 06:04 → PRE IP 02-24 07:30 → SURS 02-24 12:34
PROVIDERS: ADMIT Otolaryngology
PROC: 0GTJ0ZZ Resection of Thyroid Gland Isthmus, Open Approach (ICD-10-PCS; 2022-02-24)
PROC: 07T10ZZ Resection of Right Neck Lymphatic, Open Approach (ICD-10-PCS; 2022-02-24)
PROC: 0GTK0ZZ Resection of Thyroid Gland, Open Approach (ICD-10-PCS; principal; 2022-02-24 07:30)
PROC: 0GTH0ZZ Resection of Right Thyroid Gland Lobe, Open Approach (ICD-10-PCS; 2022-02-24 07:30)
DX: C73 Malignant neoplasm of thyroid gland (principal); E04.1 Nontoxic single thyroid nodule; I10 Essential (primary) hypertension; M19.90 Unspecified osteoarthritis, unspecified site; K58.9 Irritable bowel syndrome, unspecified; K21.9 Gastro-esophageal reflux disease without esophagitis; G89.29 Other chronic pain; E78.5 Hyperlipidemia, unspecified; Z87.891 Personal history of nicotine dependence; Z90.49 Acquired absence of other specified parts of digestive tract; Z79.899 Other long term (current) drug therapy
CPT/HCPCS: A9270; J0171; J1100; J1885; J2250; J2370; J2405; J2704; J3010; J7120